=== PATIENT | female | born 1960 | race Caucasian/White ===

== ENCOUNTER 2022-12-30 05:36 | Day surgery (SDC) | payer BC ==
[2022-12-30] MEDS ORDERED: Lactated Ringers 1,000 ML IV SCH (06:30)
[2022-12-30] MEDS ORDERED: Versed 2 MG/2 ML Injection ONE (06:58)
[2022-12-30] MEDS ORDERED: DIPRIVAN 200 MG/20 ML IV ONE ×2 (06:58→07:18)
[2022-12-30] MEDS ORDERED: Xylocaine-Mpf 2% 5 Ml Vial ONE (06:58)
[2022-12-30 08:11] VITALS: BP 114/83; PULSE 65; O2SAT 96
--- NOTE | 2022-12-30 10:50 | OP ---
SURGERY DATE/TIME: 12/30/2022 0703 PREOPERATIVE DIAGNOSIS: Positive Cologuard. POSTOPERATIVE DIAGNOSIS: Multiple colon polyps in the sigmoid colon and sigmoid diverticulosis. PROCEDURE: Colonoscopy with hot snare polypectomy removal of the polyp. SURGEON: Dr. Su. ANESTHESIA: Medications given by anesthesia department. HISTORY: The patient is a 62-year-old white female presenting for her first colonoscopy. She states she had a positive Cologuard. The patient was felt the need to have endoscopic evaluation. She was appraised of the risks of the procedure including the risk of perforation, phlebitis, untoward reaction to medication, bleeding and missed lesions. The patient verbalized her understanding and desired to have the procedure performed. DESCRIPTION OF PROCEDURE: The patient was given the medications by the anesthesia department. She had continuous pulse oximetry, ECG monitoring, intermittent blood pressure monitoring during the examination. She was placed in the left lateral decubitus position. A digital rectal examination was performed and revealed normal anal sphincter tone and no masses. The flexible Olympus pediatric colonoscope was used to intubate the rectum. A view of the colon was developed sequentially to the cecum. Upon insertion and withdrawal was three areas in the concerning polyps and these were removed using the polypectomy snare and retrieved for pathologic evaluation. The scope was removed from the patient who tolerated the procedure well and was sent back to OP recovery in good condition. The prep was noted to be fair to good.
== END 2022-12-30 08:25 | disposition home or self-care (01) ==
LOC: SDC 05:36
PROVIDERS: ATTEND Family Medicine
DX: K57.30 Diverticulosis of large intestine without perforation or abscess without bleeding (principal); D12.4 Benign neoplasm of descending colon; D12.5 Benign neoplasm of sigmoid colon; R19.5 Other fecal abnormalities
CPT/HCPCS: J2250; J2704

== ENCOUNTER 2025-06-08 15:30 | Day surgery (SDC) | payer BC ==
[2025-06-08] MEDS ORDERED: LIDOCAINE HCL 1% 50 MG/5 ML VL IJ ONE (15:31)
[2025-06-08] MEDS ORDERED: BUPIVACAINE 0.5% VIAL IJ ONE (15:31)
[2025-06-08] MEDS ORDERED: methylPREDNISolone acetate IM ONE (15:31)
--- NOTE | 2025-06-08 20:09 | XRAY ---
Indication: Right shoulder, subacromial bursa, and biceps tendon injection. Intraoperative fluoroscopy provided for 27 seconds. 3 digital spot image submitted for interpretation demonstrates needle tip projecting over right glenohumeral joint superiorly. 2nd needle tip subacromial. Small amount of contrast injected for needle tip placement. Correlate with intraoperative findings/report. Incidental incompletely visualized proximal humerus orthopedic hardware
--- NOTE | 2025-06-08 20:11 | XRAY ---
27 seconds of fluoroscopy used in surgery for a right intra-articular shoulder injection, right subacromial bursa injection, and right biceps tendon injection.
== END 2025-06-08 18:25 | disposition home or self-care (01) ==
LOC: SDC-PAIN 15:30
PROVIDERS: ATTEND Psychiatry & Neurology Pain Medicine
DX: M19.011 Primary osteoarthritis, right shoulder (principal)